=== PATIENT | female | born 1990 | race Caucasian/White ===

== ENCOUNTER 2017-02-13 10:12 | Emergency (ER) | payer MEDICAID, OTHER ==
[2017-02-13 10:18] VITALS: BP 115/71
--- NOTE | 2017-02-13 10:47 | ED Physician Documentation ---
PD HPI OPHTHO - Stated complaint Stated Complaint: EYE IRRITATION,REDNESS - Chief complaint Chief Complaint: Heent - History obtained from History obtained from: Patient, Family - History of Present Illness Timing - onset: Other (3 days ago) Timing - duration: Days (3) Timing - details: Gradual onset Pain level max: 0 Pain level now: 0 Location: Left Quality / character: Itching (mild). No: Burning, Aching, Throbbing, Sharp Associated symptoms: Redness. No: Swelling, Tearing, Discharge, Matting, FB sensation, Photophobia, Double vision, Decreased vision, Loss of vision, Headache Contributing factors: Wears glasses, Wears contacts (rarely) Similar symptoms before: Has not had sx before Recently seen: Not recently seen - Additional information Additional information: Patient is a 26-year-old female who is attending veterinary school in the [facility], she states that approximately 3 days ago noticed slight itching to the left eye and then noticed what appeared to be a burst blood vessel. She then flew home on a plane, awoke this morning with the entire eye red. She is not on blood thinners currently. Review of Systems Constitutional: denies: Fever, Chills Eyes: denies: Decreased vision, Photophobia Ears: denies: Ear pain Nose: denies: Rhinorrhea / runny nose, Congestion Throat: denies: Sore throat Cardiac: denies: Chest pain / pressure Respiratory: denies: Cough GI: denies: Abdominal Pain, Nausea, Vomiting, Diarrhea : denies: Now EGA Skin: denies: Rash Musculoskeletal: denies: Neck pain, Back pain Neurologic: denies: Headache PD PAST MEDICAL HISTORY - Past Medical History Past Medical History: Yes Psych: Depression, Anxiety Derm: Psoriasis Other Past Medical History: psoriasis, reactive arthritis, seasonal allergies - Past Surgical History Past Surgical History: Yes - Present Medications Home Medications: Ambulatory Orders Medication Instructions Recorded Confirmed Bupropion HCl [Wellbutrin Sr] 200 mg PO DAILY 01/03/15 01/03/15 sulfaSALAzine [Azulfidine] 1,000 mg PO BID 02/13/17 02/13/17 - Allergies Allergies/Adverse Reactions: Allergies Allergy/AdvReac Type Severity Reaction Status Date / Time amoxicillin [Amoxicillin] Allergy Intermediate Rash Verified 10/08/13 13:38 doxycycline Allergy Rash Verified 12/16/13 09:02 vitamin A AdvReac Rash Verified 12/16/13 09:02 - Social History Does the pt smoke?: Yes Smoking Status: Former smoker Does the pt drink ETOH?: Yes Does the pt have substance abuse?: No - Immunizations Immunizations are current?: Yes - POLST Patient has POLST: No PD ED PE NORMAL - Vitals Vital signs reviewed: Yes - General General: Alert and oriented X 3, No acute distress - HEENT HEENT: Moist mucous membranes, Other (L eye - subconjunctival hemorrhage present diffusely. Otherwise normal exam. ) - Neck Neck: Supple, no meningeal sign - Derm Derm: Warm and dry - Neuro Neuro: Alert and oriented X 3 Results - Vitals Vitals: Vital Signs - 24 hr 02/13/17 10:15 Temperature 36.7 C Heart Rate 82 Respiratory 16 Rate Blood Pressure 115/71 O2 Saturation 100 Oxygen O2 Source Room air PD MEDICAL DECISION MAKING - ED course Complexity details: considered differential, d/w patient, d/w family ED course: Patient is a 26-year-old female who presents to the emergency department with subconjunctival hemorrhage of the L eye. Possible started from seasonal allergies, likely worsened by her recent plane ride. Denies any other trauma. Is not wearing contacts. Normal vision out of the eye. Pupils equal round and reactive. No evidence of infection. We will continue supportive care and follow-up with her doctor. Patient and family counseled regarding signs and symptoms for which I believe and urgent re-evaluation would be necessary. Patient with good understanding of and agreement to plan and is comfortable going home at this time This document was made in part using voice recognition software. While efforts are made to proofread this document, sound alike and grammatical errors may occur. Departure - Departure Disposition: 01 Home, Self Care Clinical Impression: Subconjunctival hemorrhage of left eye Condition: Good Instructions: ED Eye Injury Subconj Hemorrhage Follow-Up: Yamil Rodriguez MD [Provider Admit Priv/Credential] - Within 1 week Comments: You can use zaditor eye drops at home. Return if you worsen. This should improve over the next few days. Discharge Date/Time: 02/13/17 10:52
== END 2017-02-13 10:52 | disposition home or self-care (01) ==
LOC: ED 10:12
DX: H11.32 Conjunctival hemorrhage, left eye (principal); M19.90 Unspecified osteoarthritis, unspecified site; Z87.891 Personal history of nicotine dependence
CPT/HCPCS: 99283